=== PATIENT | female | born 1930 | race American Indian/Alaskan Native ===

== ENCOUNTER 2016-09-26 10:45 | Day surgery (SDC) | payer MEDICARE ==
[~2016-09-26 10:45] MED LIST: WATER FOR IRRIG STERILE IR ONE
[2016-09-26] MEDS ORDERED: WATER FOR IRRIG STERILE IR ONE (11:38)
--- NOTE | 2016-09-26 12:00 | Anesthesia Day of Surgery ---
Anesthesia Day of Surgery - Day of Surgery Patient Examined: Yes Patient H&P Reviewed: Yes Patient is NPO: Yes Beta Blockers: Yes
--- NOTE | 2016-09-26 12:02 | Anesthesia Consultation ---
Anesthesia Consult and Med Hx Date of service: 09/26/16 - Airway Anesthetic Teeth Evaluation: Good ROM Head & Neck: Adequate Mental/Hyoid Distance: Adequate Mallampati Class: Class II Intubation Access Assessment: Probably Good - Pulmonary Exam CTA: Yes - Cardiac Exam Cardiac Exam: RRR - Pre-Operative Health Status ASA Pre-Surgery Classification: ASA3 Proposed Anesthetic Plan: MAC - Pulmonary Hx Smoking: No - Cardiovascular System Hx Hypertension: Yes - Endocrine Hx Non-Insulin Dependent Diabetes: Yes - Other Systems Hx Cancer: Yes (Colon CA, Colon resection in March) - Additional Comments Anesthesia Medical History Comments: High cholesterol, HX of Colon Polyps
[2016-09-26] MEDS: NACL 0.9% 1000 ML 1,000 ML IV SCH ×2 (12:12→14:21)
--- NOTE | 2016-09-26 12:17 | History and Physical Report ---
History of Present Illness Date of examination: 09/26/16 Date of admission: 09/26/2016 Chief complaint: Personal history of colon polyps with abnormal pathology report. Constipation Change in bowel habits History of present illness: Patient is a 86-year-old female who presents with a past history of colon polyps with an abnormal path report on colonoscopy. Patient lately has had altered bowel habits with progressive constipation. Patient now presents for evaluation with a colonoscopy. Past History Past Medical History: diabetes, GERD, hypertension, hyperlipidemia Social history: denies: smoking, alcohol abuse Family history: hypertension Medications and Allergies Allergies Allergy/AdvReac Type Severity Reaction Status Date / Time No Known Allergies Allergy Verified 09/26/16 07:50 Home Medications Medication Instructions Recorded Confirmed Last Taken Type Amlodipine Besylate [Amlodipine 09/26/16 09/26/16 06:00 History Besylate] Atorvastatin Calcium [Atorvastatin 09/26/16 09/25/16 22:00 History Calcium] Carvedilol [Carvedilol] 09/26/16 09/26/16 08:00 History Lisinopril [Lisinopril] 09/26/16 09/25/16 08:00 History glipiZIDE [Glipizide ER] 09/26/16 09/25/16 08:00 History Active Meds: Active Medications Sodium Chloride (Nacl 0.9% 1000 Ml) 1,000 mls @ 50 mls/hr IV DIRECT BAKARI Last Admin: 09/26/16 12:12 Dose: 50 mls/hr Review of Systems All systems: negative Exam - Constitutional Vitals: Temp Pulse Resp BP Pulse Ox 97.8 F 60 11 L 139/76 100 09/26/16 11:54 09/26/16 11:54 09/26/16 11:54 09/26/16 11:54 09/26/16 11:54 General appearance: Present: no acute distress, well-nourished - EENT Eyes: Present: PERRL ENT: hearing intact, clear oral mucosa - Neck Neck: Present: supple, normal ROM - Respiratory Respiratory effort: normal Respiratory: bilateral: CTA - Cardiovascular Heart Sounds: Present: S1 & S2. Absent: rub, click - Extremities Extremities: pulses symmetrical, No edema Peripheral Pulses: within normal limits - Abdominal General gastrointestinal: Present: soft, non-tender, non-distended, normal bowel sounds Female genitourinary: Present: normal - Integumentary Integumentary: Present: clear, warm, dry - Musculoskeletal Musculoskeletal: gait normal, strength equal bilaterally - Psychiatric Psychiatric: appropriate mood/affect, intact judgment & insight - Neurologic Neurologic: CNII-XII intact, moves all extremities Assessment and Plan Personal history of colon polyps with abnormal pathology report Constipation Treatment by habits. Plan: Full colonoscopy.
--- NOTE | 2016-09-26 12:19 | Operative Report ---
Operative Report Operative Report: Date of procedure: 09/26/2016 Procedure: Colonoscopy with snare polypectomy, multiple polyp ablations, cold biopsies rectal polyp. Attending physician: Danny Salcedo MD Generating Plant Superintendent: Danny Salcedo MD Indication: Patient is an 86-year-old female who presents with a history of colon polyps with abnormal pathology report and also history of progressive constipation with change in bowel habits. Patient has a past history of colon cancer status post segmental resection of the proximal ascending colon. A colonoscopy is done to evaluate patient so that treatment may be directed based on the findings. Consent: Informed consent was obtained after advising the patient and family regarding nature of this procedure, its indications, potential benefits as well as possible complications including but not limited to bleeding perforation and adverse reaction to medication, infection as well as other cardiopulmonary complications. An informed written and verbal consent was then obtained after due opportunity was provided for questions and answers. Monitoring: Patient was monitored continuously with pulse oximetry and electrocardiographic recordings as well as blood pressure recordings. Vital signs remained stable throughout this procedure with no untoward events. Preoperative assessment: Patient was assessed immediately prior to this procedure for capacity to tolerate monitored anesthesia care and moderate sedation as well as general anesthesia. Patient's ASA classification is 2, Mallampati class is 2, Hyomental distance is 3. Instrument: Fujinon videocolonoscope Medications: Propofol given intravenously in divided doses for details please potential records Description of procedure: Patient was placed in the left lateral decubitus position after achieving sedation, a digital rectal examination was performed following which the colonoscope was introduced into the anal verge and advanced to the cecum which was identified by the cecal valve, the appendiceal orifice, as well as by the cecal strap and direct transillumination. The colonoscope was subsequently withdrawn with careful inspection of all mucosal surfaces. Patient tolerated this procedure well and was subsequently taken to the recovery room. The following findings were noted. Findings: The ileocolonic anastomosis was normal in the ascending colon. Just distal to this there was a sessile 1-1.5 cm polyp which was removed by snare electrocautery and retrieved. In the distal ascending colon there was another 1 cm sessile polyp that was removed snare electrocautery. The transverse colon there were 2 flat polyps there were ablated. There were extensive diverticulosis of the descending colon and sigmoid colon in particular but also smaller diverticula in the transverse colon and the ascending colon. In the transverse colon there were 2 diminutive flat polyps that were ablated. In the sigmoid colon at there were 2 diminutive flat polyp that was ablated. In the rectum patient had additional 2 flat polyps that were ablated. Also, close to the anal verge, there was a very flat lesion that does not necessarily have the endoscopic appearance for polyp that appeared somewhat friable and abnormal. Several biopsies of this area were obtained by cold biopsies to rule out adenoma or cancer. On the retroflex view at the anal verge, patient had internal hemorrhoids. Impression: Ascending colon polyp status post snare polypectomy. Transverse colon polyp status post ablation. Sigmoid colon polyp status post ablation. Rectal polyp status post ablation. Diverticulosis. Rectal polyp close to the anal verge, status post cold biopsies. Plan: Follow pathology report. High-fiber diet Consider repeat colonoscopy or sigmoidoscopy in the next 3-6 months depending on pathology report from the anal verge biopsy.
[2016-09-26] MEDS ORDERED: DIPRIVAN 10 MG/ML IV ONE ×2 (12:21)
--- NOTE | 2016-09-26 13:23 | Post Anesthesia Evaluation ---
- Post Anesthesia Evaluation Patient Participated: Yes Airway Patent: Yes Stable Respiratory Function: Yes Nausea/Vomiting: No Temp > 96.8F: Yes Pain Manageable: Yes Adequeate Hydration: Yes Anesthesia Complications: No Block Receding Appropriately: Not Applicable Patient on Ventilator: No
--- NOTE | 2016-09-26 13:39 | Discharge Summary ---
Short Stay Discharge Plan Weight Bearing Status: Weight Bear as Tolerated Diet: regular Additional Instructions: Post Sedation D/C Instructions When you return home you may resume your regular diet unless otherwise directed. - Go directly home from the hospital and rest quietly. You may resume normal activities tomorrow. -Do NOT drive, return to work, operate any machinery or make any important personal or business decisions today. - Do NOT drink any alcohol or take nerve or sleeping drugs. They add to the effects of the medicine still present in your body. Follow up with: JUDY BARNARD MD [Primary Care Provider] - 7 Days
[2016-09-26 13:48] VITALS: BP 125/52
== END 2016-09-26 10:46 | disposition home or self-care (01) ==
LOC: GIO 10:45
PROVIDERS: ATTEND Internal Medicine Gastroenterology
DX: K63.5 Polyp of colon (principal); D12.2 Benign neoplasm of ascending colon; K62.1 Rectal polyp; K64.8 Other hemorrhoids; K57.30 Diverticulosis of large intestine without perforation or abscess without bleeding; I10 Essential (primary) hypertension; E11.9 Type 2 diabetes mellitus without complications; E78.00 Pure hypercholesterolemia, unspecified; K21.9 Gastro-esophageal reflux disease without esophagitis; Z85.038 Personal history of other malignant neoplasm of large intestine; Z90.49 Acquired absence of other specified parts of digestive tract; Z98.0 Intestinal bypass and anastomosis status; Z87.19 Personal history of other diseases of the digestive system; Z79.899 Other long term (current) drug therapy; Z79.84 Long term (current) use of oral hypoglycemic drugs; Z82.49 Family history of ischemic heart disease and other diseases of the circulatory system
CPT/HCPCS: 45380; 45385; 45388; 82962; 88305; J2704; J7030